=== PATIENT | female | born 1935 | race African-American/Black ===

== ENCOUNTER → 2018-06-25 | Outpatient (CLI) | payer OTHER, BC ==
[~2018-06-25] MED LIST: ACCUNEB1.25 MG/3 INH; ACYCLOVIR 400400 MG PO; B COMPLEX-VITA1 EACH PO; BENICAR HCT 401 EACH PO; CALCIUM 500 +1 EAC5 PO; JANUVIA100 MG PO; LEXAPRO 10 MG T10 M1 PO; OSTEO BI-FLEX1 EAC1 PO; PERCOCET 5-3251 EACH; PRILOSEC 20 MG20 MG PO; RANITIDINE 150150 M1 PO; THERA-M CAPLET1 EACH PO; THYROID65 MG PO; VALIUM5 MG
== END ==
LOC: ULTRA 06-20 13:56
DX: R10.11 Right upper quadrant pain (principal); R11.2 Nausea with vomiting, unspecified

== ENCOUNTER → 2018-11-07 | Outpatient (CLI) | payer OTHER, BC | LOC: CAT 14:34 | DX: G93.89 Other specified disorders of brain (principal) ==

== ENCOUNTER 2020-12-11 11:37 | Emergency (ER) | payer OTHER, BC ==
[~2020-12-11] VITALS: Ht 165.1 cm; Wt 90.7 kg
[2020-12-11] MEDS ORDERED: MEDROLDOSEPACK PO (12:46)
[2020-12-11] MEDS ORDERED: FLEXERIL PO (12:46)
[2020-12-11] MEDS ORDERED: NORCO5 PO (12:46)
[2020-12-11 13:11] VITALS: BP 148/70
== END 2020-12-11 13:15 | disposition home or self-care (01) ==
LOC: ER 11:37
DX: M54.12 Radiculopathy, cervical region (principal); J45.909 Unspecified asthma, uncomplicated; I10 Essential (primary) hypertension; G47.30 Sleep apnea, unspecified; K21.9 Gastro-esophageal reflux disease without esophagitis; E03.9 Hypothyroidism, unspecified; Z88.5 Allergy status to narcotic agent; Z88.8 Allergy status to other drugs, medicaments and biological substances